=== PATIENT | male | born 1990 ===

== ENCOUNTER → 2016-08-08 | Outpatient (CLI) | payer BC ==
--- NOTE | 2016-08-08 11:53 | DX ---
PA and Lateral Chest History: Productive cough for 5 weeks. Comparison: None available. Findings: There is mild peribronchial thickening without focal consolidation. There is no pneumothora x or pleural effusion. The heart and pulmonary vasculature are normal. The bones are normal. Impression: Mild peribronchial thickening suggesting airways disease/bronchitis.
== END ==
LOC: BMCIMAGING 11:27
PROVIDERS: ATTEND Emergency Medicine
DX: J45.909 Unspecified asthma, uncomplicated (principal)